=== PATIENT | female | born 1975 | race Caucasian/White ===

== ENCOUNTER 2017-07-15 19:38 | Emergency (ER) | payer MEDICAID, SELFPAY ==
[2017-07-15 19:43] VITALS: BP 128/86; PULSE 79; PULSE 82; RESP 17; RESP 18; TEMP 36.5; O2SAT 97; O2SAT 98; BMI 39.7
--- NOTE | 2017-07-15 20:00 | CT_ITS ---
STUDY: CT ABDOMEN AND PELVIS WITHOUT CONTRAST REASON FOR EXAM: Female, 41 years old. Left flank pain and nausea and bloating RADIATION DOSAGE (If Supplied By Facility): CTDIvol = ( 19.11 ) mGy, DLP = ( 997.99 ) mGycm TECHNIQUE: Transaxial images were obtained from the dome of the diaphragm to the symphysis pubis without oral contrast, and without intravenous contrast. Sagittal and coronal images were reconstructed. Individualized dose optimization techniques were used for this CT. COMPARISON: 14 FINDINGS: The visualized lung bases are unremarkable. The visualized portions of the heart are within normal limits. Normal liver. There are surgical clips in the gallbladder fossa consistent with a prior cholecystectomy. Normal spleen. Normal pancreas. Normal bilateral adrenal glands. Normal right kidney. Normal left kidney. Normal visualized stomach. Normal small intestine. Stool throughout the colon. The appendix is visualized and appears normal. There are multiple diverticuli of the colon. There is diverticulosis but no radiographic signs for diverticulitis. Normal abdominal aorta. Normal inferior vena cava. Normal retroperitoneum. Normal urinary bladder. Normal visualized uterus. There are bilateral tubal ligation clips. There is a small umbilical hernia containing fat. Normal osseous structures. CT/Abdomen/Pelvis without Cont IMPRESSION: Constipation. Cholecystectomy There are multiple diverticuli of the colon. There is diverticulosis but no radiographic signs for diverticulitis. There are no renal stones. There is no hydronephrosis. Electronically Signed: Stuart Castaneda MD at 21:37 EDT , Service support ,
--- NOTE | 2017-07-15 20:26 | ED.VISSUMM ---
- ER Visit Summary Date of Service: 07/15/17 Chief Complaint: Left flank pain History of Present Illness: The patient is a 41 F presenting with left flank pain. Patient states this started yesterday morning. She woke up thinking that she slept on her back wrong. She states the pain persisted. She has tried ibuprofen at home with minimal relief. She has nausea with no vomiting. She states she has constipation, last BM yesterday. She has a history of kidney stones. Denies fever or chills. Denies urinary complaints. Denies other complaints. Physical Examination: Vitals are stable. Patient is afebrile. Alert no acute distress. HEENT exam is unremarkable. Neck is supple. Lungs are clear and equal bilaterally. Heart is regular rate and rhythm. Abdomen is soft nontender nondistended. No guarding or rebound Back: Left CVA tenderness Extremities are unremarkable. Skin is warm and dry. No focal neurologic deficit. Remainder of exam is unremarkable. Emergency Department Course and Treatment: Patient is given morphine, Zofran with some improvement. CBC, chemistries unremarkable. Lipase is normal. Urinalysis is unremarkable. D-dimer is normal. CT abdomen pelvis shows constipation, no stones. On reevaluation, pain is worse when she moves and twists. She was given Norflex IM. She is given a prescription for flexeril, Naprosyn, and Miralax. She is advised to follow-up with her primary care physician. Advised return ED for worsening complaints. Disposition: Discharge home Impression: Left flank pain, constipation This note was generated with [employer] dictation software. It may contain incorrect words, spelling, and punctuation that were not noted in review of the chart prior to signing ED Disposition - Plan for ED Patient: Chief Complaint: Flank Pain Instructions: ED Flank Pain Uncertain Cause Prescriptions: Naproxen [Naprosyn] 500 mg PO BID PRN #20 tablet Polyethylene Glycol 3350 [Miralax] 17 gm PO DAILY #7 packet Cyclobenzaprine [Flexeril] 10 mg PO TID PRN #20 tablet PRN Reason: Muscle Spasm Referrals: Kelsey Clements MD [Primary Care Provider] -
[2017-07-15] MEDS: Ondansetron 4 MG/2 ML Vial IV (20:54)
[2017-07-15] MEDS: Morphine 4 MG/ML Syringe IV (20:54)
[2017-07-15] MEDS: 0.9% Normal Saline 1,000 ML 1000 ML IV (20:54)
[2017-07-15 21:09] LABS: Bacteria 0 SEEN /hpf (None Seen); Mucous, Urine 0 SEEN /hpf (<or=2+); Red Blood Cells-Urine 0 SEEN /hpf (0-5)
[2017-07-15 21:11] LABS: Absolute Lymphocyte Count 2.68 X10^3/ul (0.83-4.51); Basophil# 0.02 X10^3/uL; Basophil% 0.2 % (0-1); Eosinophil# 0.17 X10^3/uL; Eosinophils% 1.6 % (0-5); Hematocrit 39.9 % (37-47); Hemoglobin 12.8 g/dl (12.0-15.0); Lymphocyte # 2.68 X10^3/ul (4.0); Mean Corp Hgb Conc 32.1 g/gl (32-36); Mean Corpuscular Hgb 28.8 pg (27.0-32.0); Mean Corpuscular Volume 89.7 fL (81-99); Mean Platelet Vol. 12.1 fl (6.2-12.0); Monocyte# 0.47 X10^3/uL; Monocyte% 4.6 % (0-10); Neutrophil # 6.96 X10^3/uL (2.7-7.7); Neutrophil % 67.5 % (47-70); Platelet Count 246 K/mm3 (150-450); RBC Distribution Width CV 13.7 % (11.6-14.6); RBC Distribution Width SD 44.8 fl (35.1-43.9); Red Blood Count 4.45 M/mm3 (4.2-5.4); White Blood Count 10.3 K/mm3 (4.4-11.0)
[2017-07-15 21:12] LABS: POSITIVE COUNT NO; POSITIVE DIFFERENTIAL NO; POSITIVE MORPHOLOGY NO
[2017-07-15 21:12] LABS: Color, Urine Straw (Yellow); Glucose, Dipstick Normal (Normal); Ketone-Dipstick Negative (Negative); Leukocyte Esterase-Dipstick 25 /ul (Negative); Nitrite-Dipstick Negative (Negative); Occult Blood-Urine Negative /ul (Negative); Protein-Dipstick Negative (Negative); Urine Bilirubin Dipstick Negative (Negative); Urine Clarity Clear (Clear); Urine Urobilinogen Normal (Normal)
[2017-07-15 21:30] LABS: ALB/GLOB Ratio 0.9 RATIO (0.9-2.4); AST(SGOT) 14 U/L (15-37); Alanine Aminotransfer ALT/SGPT 23 U/L (13-56); Albumin, Serum 3.8 g/dL (3.2-5.0); Alkaline Phosphatase 88 U/L (45-117); Anion Gap 6 (5-15); BUN 11 mg/dL (7-18); Calcium,Total 8.1 mg/dL (8.5-10.1); Chloride 106 mmol/L (98-107); Creatinine, Serum 0.79 mg/dL (0.55-1.02); EST Glomerular Filtration Rate 85 mL/min (>60); Est Glom Filt Rate - Afr Amer 103 mL/min (>60); Estimated Creatinine Clearance 80.11 ml/min; Globulin 4.3 g/dL (2.2-4.2); Glucose 78 mg/dL (74-106); Lipase 232 U/L (73-393); Potassium 3.5 mmol/L (3.5-5.1); Protein, Total 8.1 g/dL (6.4-8.2); Sodium Level 141 mmol/L (136-145)
[2017-07-15 21:33] LABS: Squamous Epithelial Cells - UA 0-5 SEEN /hpf (5-10); White Blood Cells 0-5 SEEN /hpf (0-5)
[2017-07-15 21:47] LABS: D-Dimer Quantitative (DVT/PE) 0.39 FEU/ug/m (0.27-0.49)
[2017-07-15] MEDS: Orphenadrine 60 MG/2 ML Ampul IM (22:22)
--- NOTE | 2017-07-15 22:25 | ED.DEP ---
ED Disposition - Plan for ED Patient: Chief Complaint: Flank Pain Instructions: ED Flank Pain Uncertain Cause Prescriptions: Naproxen [Naprosyn] 500 mg PO BID PRN #20 tablet Polyethylene Glycol 3350 [Miralax] 17 gm PO DAILY #7 packet Cyclobenzaprine [Flexeril] 10 mg PO TID PRN #20 tablet PRN Reason: Muscle Spasm Referrals: Kelsey Clements MD [Primary Care Provider] -
[2017-07-15 22:27] VITALS: BP 109/64; PULSE 93; RESP 16; O2SAT 97
== END 2017-07-15 22:41 | disposition home or self-care (01) ==
LOC: ED 20:08
PROVIDERS: Emergency Provider Emergency Medicine; Family Provider Internal Medicine; PCP Internal Medicine
DX: K59.00 Constipation, unspecified (principal); R10.9 Unspecified abdominal pain; J45.909 Unspecified asthma, uncomplicated; Z87.442 Personal history of urinary calculi; Z90.49 Acquired absence of other specified parts of digestive tract
CPT/HCPCS: 74176; 80053; 81001; 83690; 85025; 85379; 96361; 96372; 96374; 96375; 99283; J7030; A4216; J2405

== ENCOUNTER 2017-12-23 07:51 | Day surgery (SDC) | payer MEDICAID, SELFPAY ==
[2017-12-23] VITALS (8 sets, daily range): BP systolic 93–119; BP diastolic 50–69; PULSE 68–88; RESP 15–16; TEMP 36.2–36.4; O2SAT 96–98; BMI 38.7
--- NOTE | 2017-12-23 | UTC_PTH ---
PATIENT: ANGIE VERAS LOC: [facility] [place] U#:[id number] AGE/SX: 42/F ROOM: RE12/23/[address]: Dr. Nava Puckett MD : [id number] BED: DIS: 12/23/2017 SPEC #: [id number] RECD: 12/23/17 12:25 STATUS: LINNEA FOX #: [id number] HEMAL: 12/23/17 00:[address]: Nava Puckett DEPT: SURGICAL PATHOLOGY RECD BY: Jef Wright ENTERED: 12/23/17 12:25 SP TYPE: HIRAM FORTE DR: Dr. Kelsey Clements MD Tissues: Uterine cervix, NOS Procedures: Surgery Specimen Level IV HEADER OPERATION: Hysteroscopy, dilation and curettage PRE-OP DIAGNOSIS: Abnormal uterine bleeding, placental site nodule TISSUE SUBMITTED: Uterine curettings MICROSCOPIC DIAGNOSIS Uterine curettings: Proliferative endometrium. Fragments of benign ecto- and endocervical epithelium. SJ:javier 12/24/17 COMMENT Changes consistent with placental site nodules are not seen. MICROSCOPIC DESCRIPTION Slides are reviewed. GROSS DESCRIPTION Received in fixative is one container labeled with the patient's name and designated uterine curettings. The specimen consists of multiple fragments of pink hemorrhagic soft tissue that in aggregate measure 5 x 3 x 0.3 cm. The specimen is totally submitted in two cassettes. / QUITA:javier 12/23/17 TC:4 CPT: 56971
[2017-12-23 08:16] LABS: Internal QC Validated? YES +Cl - CLEAR BKGD; Pregnancy, Urine Negative Negative
[2017-12-23 08:33] LABS: Hematocrit 39.8 % (37-47); Hemoglobin 12.8 g/dl (12.0-15.0); Mean Corp Hgb Conc 32.2 g/gl (32-36); Mean Platelet Vol. 12.2 fl (6.2-12.0); Platelet Count 212 K/mm3 (150-450); RBC Distribution Width CV 13.8 % (11.6-14.6); RBC Distribution Width SD 45.2 fl (35.1-43.9); Red Blood Count 4.42 M/mm3 (4.2-5.4); White Blood Count 7.5 K/mm3 (4.4-11.0)
[2017-12-23 08:35] LABS: Scan Indicated on CBC? Y/N NO
--- NOTE | 2017-12-23 10:07 | DCINST_ITS ---
Discharge Diet: No Restrictions Discharge Activity: Return to Normal Activity, May Shower, May Take a Tub Bath - in 2 weeks. Return to work on:: 12/24/17 May shower in (days): 1 May resume sexual activity in: 1 week Call your doctor if your incision/area has: Sudden Increased Bleeding, Foul Smelling Discharge Call your doctor if you observe: Fever of 101 or Higher, Using more than one pad per hour Allergies/Adverse Reactions: Allergies No Known Allergies Allergy (Verified 03/20/17 21:25) Medications to take at Discharge Albuterol Inhaler [Ventolin Hfa] 2 puff INHALATION Q4H PRN PRN 04/15/14 Albuterol Aerosols [Ventolin Aerosols] 2.5 mg INHALATION Q4H PRN PRN 03/20/17 Cyclobenzaprine [Flexeril] 10 mg PO TID PRN #20 tablet 07/15/17 Montelukast [Singulair] 10 mg PO DAILY 07/15/17 Naproxen [Naprosyn] 500 mg PO BID PRN #20 tablet 07/15/17 Polyethylene Glycol 3350 [Miralax] 17 gm PO DAILY #7 packet 07/15/17 Primary Care Physician: Kelsey Clements MD [Primary Care Provider] - Test Results: Test results from this visit will be discussed in further detail at your follow- up appointment, if applicable. Please Follow Up With: Nava Puckett MD - [phone] When: 4-6 weeks or as needed
--- NOTE | 2017-12-23 10:24 | PCM.OPRPT ---
Report of Operation Date of Procedure: 12/23/17 Pre-Operative Diagnosis: abnormal uterine bleeding, placental site nodule Post-Operative Diagnosis: same Surgery/Procedure Performed:: Hysteroscopy dilation and curettage Description of Surgical Findings:: Lush endometrium. Small polypoid appearing lesion posterior uterine wall. 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 The weighted speculum was placed in the vagina and the anterior lip of the cervix was grasped with a single-tooth tenaculum. A paracervical block was administered with 1% lidocaine with 1-100,000 epinephrine solution. The cervix was dilated serially with Hegar dilators. The 5mm hysteroscope was placed into the uterine cavity and the above findings were noted. Bilateral tubal ostia were identified. The hysteroscope was removed. A gentle sharp curettage was done of the uterine cavity. In the posterior uterine fundus there was a small piece of tissue that was on a small pedicle after the dilation and curettage. It was grasped with a an alligator grasper and removed. There were no other focal abnormalities of the endometrial cavity. The instruments were removed from the vagina. The specimen was handed off and sent to pathology. All sponge and needle counts were correct. Vaginal sweep was performed by me. The patient was awakened and taken to the recovery room in stable condition. Hysteroscopic ins: 400 cc cc normal saline Hysteroscopic outs: Cc cc Findings: Endometrial cavity: normal, no fibroids or polyps noted, small polypoid area of tissue posterior uterine wall Cervix: normal Vagina: normal Grafts/Implants Used: none - Complications none - Admit VTE Documentation VTE Present on Admission: No VTE Mechan Device Prophylaxis: SCD's VTE Pharm Prophylaxis ordered?: No Reason prophylaxis not ordered:: Procedure Not Indicated
== END 2017-12-23 12:10 | disposition home or self-care (01) ==
LOC: SDC 07:52 → AC 07:53
PROVIDERS: Family Provider Internal Medicine; PCP Internal Medicine; Visit Provider Obstetrics & Gynecology
PROC: 0UDB8ZZ Extraction of Endometrium, Via Natural or Artificial Opening Endoscopic (ICD-10-PCS; CPT 58558; principal; 2017-12-23 09:00)
DX: N93.9 Abnormal uterine and vaginal bleeding, unspecified (principal); R93.8 Abnormal findings on diagnostic imaging of other specified body structures; K21.9 Gastro-esophageal reflux disease without esophagitis; Z87.442 Personal history of urinary calculi
CPT/HCPCS: 58558; 81025; 85027; 88305; J7120; J2405